=== PATIENT | male | born 1980 | race Caucasian/White ===

== ENCOUNTER 2016-11-05 19:42 | Emergency (ER) | payer SELFPAY ==
[2016-11-05 20:08] VITALS: BP 160/118; PULSE 79; TEMP 97.5; BMI 31.0
[2016-11-05] MEDS ORDERED: FLUORESCEIN NA 1 EA STRIP ONE (21:13)
[2016-11-05] MEDS ORDERED: TETRACAINE 0.5% OPHTH SOLN 2 ML BOTTLE ONE (21:13)
[2016-11-05] MEDS ORDERED: ERYTHROMYCIN 0.5% OPHTHALMIC OINTMENT 3.5 GM TUBE ONE (21:19)
--- NOTE | 2016-11-05 21:24 | PDOC ---
History of Present Illness - History of Present Illness Initial Comments: 11/05/16 21:27 The patient is a 36 year old male, with no significant past medical history, who presents to the emergency department with right eye pain, redness, and blurred vision since 2pm today. 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 He denied welding. He states he does not think anything got into his eye but feels irritation. He reports noticing redness in his right eye and also complains of blurred vision from his right eye. He also complains of photophobia. He denies chest pain, shortness of breath, headache and dizziness. He denies fever, chills, nausea, vomit, diarrhea and constipation. He denies dysuria, frequency, urgency and hematuria. Allergies: penicillins <Anaid Rich - Last Filed: 11/05/16 21:27> - General History Source: Patient <Eulogio Calloway - Last Filed: 11/05/16 21:32> - General Chief Complaint: Foreign Body (FB) Stated Complaint: FOREIGN BODY IN EYE Time Seen by Provider: 11/05/16 21:23 Past History <Anaid Rich - Last Filed: 11/05/16 21:27> - Past Medical History Psychiatric Problems: Yes (Anxiety) - Immunization History Immunization Up to Date: Yes - Psycho/Social/Smoking Cessation Hx Suicidal Ideation: No Smoking History: Current some day smoker Have you smoked in the past 12 months: No Information on smoking cessation initiated: No Hx Alcohol Use: No Drug/Substance Use Hx: No Substance Use Type: None <Eulogio Calloway - Last Filed: 11/05/16 21:32> - Past Medical History Allergies/Adverse Reactions: Allergies Allergy/AdvReac Type Severity Reaction Status Date / Time Penicillins Allergy Verified 11/05/16 19:44 Home Medications: Ambulatory Orders Erythromycin 0.5% Eye Ointment [Erythromycin 0.5% Eye Ointment -] 1 applic OD BID #1 tube 11/05/16 Ibuprofen 800 mg PO TID #30 tablet 11/05/16 Review of Systems - Review of Systems Able to Perform ROS?: Yes Comments:: 11/05/16 21:28 CONSTITUTIONAL: Absent: fever, no chills, no fatigue EYES: (+) right eye pain, redness, and foreign body sensation ENT: Absent: ear pain, no sore throat CARDIOVASCULAR: Absent: chest pain, no palpitations RESPIRATORY: Absent: cough, no SOB GI: Absent: abdominal pain, no nausea, no vomiting, no constipation, no diarrhea GENITOURINARY: Absent: dysuria, no frequency, no hematuria MUSCULOSKELETAL: Absent: back pain, no arthralgia, no myalgia SKIN: Absent: rash NEURO: Absent: headache <Anaid Rich - Last Filed: 11/05/16 21:27> *Physical Exam - Vital Signs Last Vital Signs Temp Pulse Resp BP Pulse Ox 97.5 F L 79 16 160/118 99 11/05/16 19:46 11/05/16 19:46 11/05/16 19:46 11/05/16 19:46 11/05/16 19:46 - Physical Exam Comments: 11/05/16 21:29 GENERAL: Well-appearing, well-nourished. No apparent distress. HEENT: (+) Right eye: fluorescein uptake at 6o clock position at right cornea Normocephalic, atraumatic. PERRL, EOM intact. CARDIOVASCULAR: Normal S1, S2. Regular rate and rhythm. PULMONARY: Clear to auscultation bilaterally. ABDOMEN: Soft, non-distended, non-tender. EXTREMITIES: Normal ROM in all four extremities. No gross deformities. SKIN: Warm, dry. No rash NEUROLOGICAL: No focal neurological deficits. <Anaid Rich - Last Filed: 11/05/16 21:27> - Vital Signs Last Vital Signs Temp Pulse Resp BP Pulse Ox 97.5 F L 79 16 160/118 99 11/05/16 19:46 11/05/16 19:46 11/05/16 19:46 11/05/16 19:46 11/05/16 19:46 <Eulogio Calloway - Last Filed: 11/05/16 21:32> Medical Decision Making - Medical Decision Making 11/05/16 21:26 Dr. Calloway: The scribe's documentation has been prepared under my direction and personally reviewed by me in its entirery. I confirm that the note above accurately reflects all work, treatment, procedures, and medical decision making performed by me. <Eulogio Calloway - Last Filed: 11/05/16 21:32> *DC/Admit/Observation/Transfer - Attestations Scribe Attestion: 11/05/16 21:30 Documentation prepared by Anaid Rich, acting as medical policy specialist for Eulogio Calloway DO <Anaid Rich - Last Filed: 11/05/16 21:27> - Discharge Dispostion Admit: No <Eulogio Calloway - Last Filed: 11/05/16 21:32> Diagnosis at time of Disposition: Corneal abrasion Qualifiers: Encounter type: initial encounter Laterality: right Qualified Code(s): S05.01XA - Injury of conjunctiva and corneal abrasion without foreign body, right eye, initial encounter - Discharge Dispostion Disposition: HOME Condition at time of disposition: Stable - Prescriptions Prescriptions: Erythromycin 0.5% Eye Ointment [Erythromycin 0.5% Eye Ointment -] 1 applic OD BID #1 tube Ibuprofen 800 mg PO TID #30 tablet - Referrals Referrals: Akira Rashid MD [Staff Physician] - - Patient Instructions Printed Discharge Instructions: DI for Corneal Abrasion Additional Instructions: use medication as directed. Keep hands clean. Return if any problems
[2016-11-05] MEDS ORDERED: IBUPROFEN 400 MG TABLET (FP) PO ONE ×2 (21:27→21:34)
== END 2016-11-05 21:38 | disposition home or self-care (01) ==
LOC: JER 19:42
DX: S05.01XA Injury of conjunctiva and corneal abrasion without foreign body, right eye, initial encounter (principal); X58.XXXA Exposure to other specified factors, initial encounter; Y93.H3 Activity, building and construction; Y92.89 Other specified places as the place of occurrence of the external cause; Y99.0 Civilian activity done for income or pay
CPT/HCPCS: 99282-25

== ENCOUNTER 2020-11-05 12:48 | Emergency (ER) | payer BC ==
[2020-11-05 12:55] VITALS: TEMP 97.8; BMI 30.2
[2020-11-05] MEDS ORDERED: OXYMETAZOLINE 0.05% NASAL SOLUTION 15 ML BOTTLE NS ONE (13:16)
[2020-11-05] MEDS ORDERED: TRANEXAMIC ACID 1000 MG/10 ML VIAL IVPUSH ONE ×2 (14:16→15:09)
[2020-11-05] MEDS ORDERED: TRANEXAMIC ACID 1000 MG/10 ML VIAL ONE (14:28)
[2020-11-05 15:59] LABS: BASO % 0.8 % (0-2.0); EOS % 1.1 % (0-4.5); HEMATOCRIT 54.5 % (35.4-49); HEMOGLOBIN 18.9 GM/dL (11.7-16.9); LYMPH % 11.2 % (8-40); MCH 31.5 pg (25.7-33.7); MCHC 34.6 g/dl (32.0-35.9); MEAN CELL VOLUME 91.1 fl (80-96); MEAN PLT VOLUME 9.5 fl (7.5-11.1); NEUT % 78.9 % (42.8-82.8); PLATELET COUNT 262 K/MM3 (134-434); RBC 5.99 M/mm3 (4.00-5.60); RDW 14.9 % (11.9-15.9); WHITE BLOOD COUNT 6.8 K/mm3 (4.0-10.0)
[2020-11-05 16:39] VITALS: BP 177/99; PULSE 104
== END 2020-11-05 16:54 | disposition short-term general hospital (02) ==
LOC: JER 12:48
PROC: 3E033GC Introduction of Other Therapeutic Substance into Peripheral Vein, Percutaneous Approach (ICD-10-PCS; principal; 2020-11-05)
PROC: 3E033GC Introduction of Other Therapeutic Substance into Peripheral Vein, Percutaneous Approach (ICD-10-PCS; 2020-11-05)
DX: R04.0 Epistaxis (principal)
CPT/HCPCS: 36415; 85025; 99284-25